=== PATIENT | female | born 1935 | race Hispanic/Latino ===

== ENCOUNTER 2019-08-07 02:40 | Observation (INO) | payer MEDICARE ==
[~2019-08-07] VITALS: Ht 152.4 cm; Wt 46.7 kg
[2019-08-07 03:19] LABS: APPEARANCE,URINE Clear (CLEAR); BILIRUBIN,URINE Negative (NEGATIVE); COLOR,URINE Yellow (YELLOW); GLUCOSE, URINE (UA) Negative (NEGATIVE); KETONES,URINE Negative (NEGATIVE); LEUKOCYTE ESTERASE ,URINE Trace (NEGATIVE); NITRATE,URINE Negative (NEGATIVE); OCCULT BLOOD,URINE Small (NEGATIVE); PROTEIN,URINE Negative (NEGATIVE)
[2019-08-07 03:22] LABS: BASOPHILS % (AUTO) 0.3 % (0.0-5.0); EOSINOPHILS % (AUTO) 1.4 % (0.0-8.0); HEMATOCRIT 38.1 % (36-48); LYMPHOCYTES % (AUTO) 15.9 % (21.0-51.0); MEAN CORPUSCULAR HEMOGLOBIN 28.5 pg (27.0-33.0); MEAN CORPUSCULAR HGB CONC 32.8 g/dL (32.0-36.0); MEAN CORPUSCULAR VOLUME 86.8 fL (79-99); MONOCYTES % (AUTO) 5.8 % (3.0-13.0); NEUTROPHILS % (AUTO) 76.4 % (40.0-77.0); PLATELET COUNT (AUTO) 210 K/uL (130-400); RED BLOOD CELL COUNT(AUTO) 4.39 MIL/uL (4.00-5.50); RED CELL DISTRIBUTION WIDTH 13.3 % (11.0-15.5); WHITE BLOOD COUNT (AUTO) 9.5 K/uL (4.8-10.8)
[2019-08-07 03:26] LABS: BACTERIA,URINE None Seen /HPF (None Seen); MUCUS,URINE Few LPF (None Seen); SQUAMOUS EPITHELIAL CELL,UR Few /HPF (0-2); WBC,URINE 0-1 /HPF (0-1)
[2019-08-07 03:27] LABS: CREATININE 0.8 mg/dL (0.5-1.5); POTASSIUM 3.4 mmol/L (3.5-5.1)
[2019-08-07 03:32] LABS: ALBUMIN 3.6 g/dL (3.5-5.0); BILIRUBIN,TOTAL 0.5 mg/dL (0.2-1.0); TOTAL PROTEIN, SERUM 8.1 g/dL (6.0-8.3)
[2019-08-07] MEDS ORDERED: SODIUM CHLORIDE 0.9% 1000ML 1,000 ML IV SCH (05:17)
[2019-08-07] MEDS ORDERED: LACTULOSE 20 GM/30 ML UDCUP PO PRN (05:30)
[2019-08-07] MEDS ORDERED: ONDANSETRON HCL 4 MG/2 ML VIAL IV PRN (05:30)
[2019-08-07] MEDS ORDERED: ACETAMINOPHEN 325 MG TAB PO PRN ×2 (05:30)
[2019-08-07] MEDS ORDERED: KETOROLAC TROMETHAMINE 15MG/ML IV PRN (05:30)
[2019-08-07] MEDS ORDERED: POTASSIUM CHLORIDE 10MEQ/100ML 100 ML IV PRN (05:30)
[2019-08-07] MEDS ORDERED: LIDOCAINE HCL-MPF 1% 2ML VIAL IV PRN (05:30)
[2019-08-07] MEDS ORDERED: HYDRALAZINE HCL 20 MG/ML VIAL IV PRN (05:30)
[2019-08-07] MEDS ORDERED: KETOROLAC TROMETHAMINE 30MG/ML ONE ×2 (05:42→05:47)
[2019-08-07] MEDS ORDERED: SODIUM CHLORIDE 0.9% 1000ML 1,000 ML IV ONE (06:29)
[2019-08-07] MEDS ORDERED: ASPI-1197 PO (07:40)
[2019-08-07] MEDS ORDERED: ACET-66 PO (07:40)
[2019-08-07] MEDS ORDERED: MELO-108 PO (07:40)
[2019-08-07] MEDS ORDERED: ATOR20TA65 PO (07:40)
[2019-08-07] MEDS ORDERED: MULT-507 PO (07:40)
[2019-08-07] MEDS ORDERED: AMLO2.5T4 PO (07:40)
[2019-08-07] MEDS ORDERED: ERGO400C PO (07:40)
[2019-08-07 08:20] VITALS: BP 146/73
--- NOTE | 2019-08-07 08:24 | NUR ---
ER ADMIT PATIENT RECEIVED FROM ER VIA STRETCHER ACCOMPANIED BY FAMILY. NO OBVIOUS SIGNS OF DISTRESS NOTED. NO C/O PAIN AT THIS TIME. ABDOMEN IS SOFT AND NON-TENDER WITH ACTIVE BOWEL SOUNDS TO ALL FOUR QUADRANTS. EVERYONE HAS BEEN ORIENTED TO ROOM AND USE OF CALL LIGHT. BED IS IN LOWEST POSITION AND LOCKED WITH PERSONAL BELONGINGS WITHIN REACH. IV IS PATENT WITH NO REDNESS OR SWELLING NOTED TO SITE. WILL CONTINUE TO MONITOR.
[2019-08-07] MEDS ORDERED: ENOXAPARIN SODIUM 30 MG/0.3 ML SQ SCH (09:00)
[2019-08-07] MEDS ORDERED: **HM** VIT D3 400 UNITS PO SCH (09:00)
[2019-08-07] MEDS ORDERED: ATORVASTATIN CALCIUM 20 MG TABLET PO SCH (09:00)
[2019-08-07] MEDS ORDERED: AMLODIPINE BESYLATE 2.5 MG TAB PO SCH (09:00)
[2019-08-07] MEDS ORDERED: FAMOTIDINE/PF 20 MG/2 ML VIAL IV SCH (09:00)
[2019-08-07 12:18] VITALS: BP 141/60
[2019-08-07] MEDS ORDERED: PANT20TA12 PO (12:37)
[2019-08-07 15:54] VITALS: BP 140/69
[2019-08-07 15:55] VITALS: BP_SYST 135; BP_SYST 142; BP_DIAS 69; BP_DIAS 91
--- NOTE | 2019-08-07 17:30 | NUR ---
INSTRUCTIONS DISCHARGE INSTRUCTIONS GIVEN TO PATIENT USING TEACH BACK. IV REMOVED WITH TIP INTACT. DIRECT PRESSURE APPLIED UNTIL BLEEDING CONTROLLED THEN SITE COVERED WITH GAUZE AND SECURED WITH A BAND-AID. NEW PRESCRIPTION PLACED IN PACKET ALONG WITH ALL PRINTED INFORMATION AND MD INSTRUCTIONS. NO QUESTIONS OR CONCERNS VOICED. PATIENT WILL F/U WITH HER PRIMARY PHYSICIAN IN [place] ON SATURDAY. PENDING RIDE HOME.
[2019-08-07] MEDS ORDERED: ASPIRIN 81MG TAB.CHEW PO SCH (21:00)
== END 2019-08-07 17:40 | disposition home or self-care (01) ==
LOC: EDH 02:40 → EDHIP 05:17 → 3DH 08:20
PROVIDERS: ADMIT Internal Medicine; ATTEND Internal Medicine
DX: K80.20 Calculus of gallbladder without cholecystitis without obstruction (principal); I10 Essential (primary) hypertension; E78.5 Hyperlipidemia, unspecified; E87.6 Hypokalemia; R11.2 Nausea with vomiting, unspecified; I25.2 Old myocardial infarction; Z90.710 Acquired absence of both cervix and uterus; Z79.82 Long term (current) use of aspirin; Z79.899 Other long term (current) drug therapy; Z88.5 Allergy status to narcotic agent
CPT/HCPCS: 36415; 76705; 80053; 81001; 82150; 83690; 84484; 85025; 93005; 96361; 96372; 96374; G0378; J1650; J1885; J3490; J7030